=== PATIENT | female | born 1960 | race Caucasian/White ===

== ENCOUNTER 2016-11-23 01:13 | Emergency (ER) | payer OTHER ==
[~2016-11-23] VITALS: Ht 162.6 cm; Wt 95.8 kg
[~2016-11-23 01:13] MED LIST: ADVIL COLD &1 TABLET PO; BUSPAR15 MG PO; CIPRO750 MG PO; DAILY VALUE1 EACH PO; FLAGYL500 MG PO; FLEXERIL5 MG PO; FLOVENT 22120 INHALA IH; PATANASE30.5 GM BOTH NARES; SPIRIVA1 INHALATI IH; ULTRAM50 MG PO; ZANTAC75 M1 PO; ZYRTEC10 M2 PO
[2016-11-23 01:16] VITALS: BP 136/91
== END 2016-11-23 03:10 | disposition left against medical advice (07) ==
LOC: EME 01:13
DX: J02.9 Acute pharyngitis, unspecified (principal); Z53.21 Procedure and treatment not carried out due to patient leaving prior to being seen by health care provider

== ENCOUNTER 2016-12-14 22:06 | Emergency (ER) | payer OTHER ==
[~2016-12-14] VITALS: Ht 157.5 cm; Wt 93.0 kg
[2016-12-15] MEDS ORDERED: FLONASE16 G1 BOTH NARES (00:53)
[2016-12-15] MEDS ORDERED: FIORICET 50-301 EACH PO (00:53)
[2016-12-15] MEDS ORDERED: MUCINEX D ER T1 EAC1 PO (00:53)
[2016-12-15 01:14] VITALS: BP 143/105
== END 2016-12-15 01:45 | disposition home or self-care (01) ==
LOC: EME 22:06
DX: R51 Headache (principal); H92.09 Otalgia, unspecified ear; H93.19 Tinnitus, unspecified ear; J02.9 Acute pharyngitis, unspecified; R42 Dizziness and giddiness; J45.909 Unspecified asthma, uncomplicated; Z88.0 Allergy status to penicillin
CPT/HCPCS: 70450; 99281; 99284

== ENCOUNTER 2016-12-19 09:08 | Inpatient (IN) | payer OTHER ==
[~2016-12-19] VITALS: Ht 157.5 cm; Wt 93.2 kg
[~2016-12-19 09:08] MED LIST changes: +FIORICET 50-301 EACH PO; +FLONASE16 G1 BOTH NARES; +MUCINEX D ER T1 EAC1 PO
[2016-12-19 10:39] LABS: HEMATOCRIT 41.6 % (36.0-46.0); MCH 29.3 PG (29.0-34.0); MCHC 33.7 G/DL (30.0-36.0); MEAN PLAT.VOLUME 11.3 uM^3 (9.5-12.4); PLATELET COUNT 193 K/uL (156-360); RBC DIS.WIDTH-CV 12.5 % (11.8-14.6); RBC DIS.WIDTH-SD 39.8 % (39-53); RED BLOOD COUNT 4.78 M/uL (3.80-5.20); WHITE BLOOD COUNT 4.6 K/uL (4.1-10.2)
[2016-12-19 10:47] LABS: CHLORIDE 108 mEq/L (99-109); POTASSIUM 4.3 mEq/L (3.7-5.4); SODIUM 139 mEq/L (136-147)
[2016-12-19 10:50] LABS: GLUCOSE 112 mg/dL (70-99)
[2016-12-19 10:51] LABS: ANION GAP 8 MEQ/L (2-14); TOTAL BILIRUBIN 0.5 mg/dL (0.0-1.0)
[2016-12-19 10:53] LABS: ALKALINE PHOSPHATASE 78 IU/L (3-129); GFR ESTIMATE (CALCULATED) > 59 mL/min/
[2016-12-19 10:54] LABS: UREA NITROGEN (BUN) 5 mg/dL (9-23)
[2016-12-19 10:57] LABS: LIPASE 29 U/L (1.0-51.0)
[2016-12-19 10:58] LABS: ADD MIUA? YES; BILIRUBIN NEGATIVE; BLOOD NEGATIVE; COLOR YELLOW ((YELLOW)); GLUCOSE (STRIP) NEGATIVE; KETONES NEGATIVE; LEUKOCYTES LARGE; NITRITE NEGATIVE; PROTEIN (STRIP) NEGATIVE; SPECIFIC GRAVITY 1.004 (1.000-1.030); UROBILINOGEN 0.2 MG/DL (0.2-1.0)
[2016-12-19 10:58] LABS: TROP-I INTERPRETATION NEGATIVE; TROPONIN-I < 0.01 ng/mL (0.0-0.30)
[2016-12-19 11:26] LABS: BACTERIA 3+ /HPF; EPITHELIAL CELLS 2+ /HPF; MUCUS NONE SEEN /LPF; RED BLOOD CELLS 0-5 /HPF (0-5); UCUL ADDED? YES
[2016-12-19 14:40] VITALS: BP 113/73
[2016-12-19] MEDS ORDERED: CYMBALTA30 MG PO ×2 (15:01→19:23)
[2016-12-19] MEDS ORDERED: XANAX0.25 MG PO ×2 (15:02→19:26)
[2016-12-19] MEDS ORDERED: ADVIL200 MG PO (15:02)
[2016-12-19 16:54] LABS: TROP-I INTERPRETATION NEGATIVE; TROPONIN-I 0.01 ng/mL (0.0-0.30)
[2016-12-19] MEDS ORDERED: DIFLUCAN200 MG PO (19:21)
[2016-12-19] MEDS ORDERED: FLOVENT 22120 INHALA IH (19:24)
[2016-12-19 20:30] VITALS: BP 117/62
[2016-12-19 23:05] LABS: TROP-I INTERPRETATION NEGATIVE; TROPONIN-I < 0.01 ng/mL (0.0-0.30)
[2016-12-19 23:42] VITALS: BP 100/70
[2016-12-20 02:51] VITALS: BP 115/81
[2016-12-20 08:28] VITALS: BP 131/74
[2016-12-20 11:31] VITALS: BP 116/76
[2016-12-20 15:23] VITALS: BP 133/77
[2016-12-20 20:00] VITALS: BP 133/74
[2016-12-20 21:20] VITALS: BP 126/69
[2016-12-21 08:03] VITALS: BP 124/84
[2016-12-21 11:04] LABS: HEMATOCRIT 36.3 % (36.0-46.0); MCH 29.8 PG (29.0-34.0); MCHC 33.9 G/DL (30.0-36.0); MCV 87.9 FL (83-99); MEAN PLAT.VOLUME 11.2 uM^3 (9.5-12.4); PLATELET COUNT 155 K/uL (156-360); RBC DIS.WIDTH-CV 12.7 % (11.8-14.6); RED BLOOD COUNT 4.13 M/uL (3.80-5.20); WHITE BLOOD COUNT 4.3 K/uL (4.1-10.2)
[2016-12-21 11:41] LABS: ANION GAP 8 MEQ/L (2-14); CHLORIDE 109 MEQ/L (99-109); GFR ESTIMATE (CALCULATED) > 59 mL/min/; GLUCOSE 98 mg/dL (70-99); POTASSIUM 3.9 MEQ/L (3.7-5.4); SAMPLE HEMOLYSIS CHECK 0; SAMPLE ICTERIC CHECK 0; SAMPLE LIPEMIA CHECK 0; SODIUM 138 MEQ/L (136-147); UREA NITROGEN (BUN) 4 mg/dL (9-23)
[2016-12-21 12:33] VITALS: BP 120/89
[2016-12-21] MEDS ORDERED: ANASPAZ0.125 MG PO (14:16)
[2016-12-21] MEDS ORDERED: CEFTIN250 MG PO (14:16)
[2016-12-21] MEDS ORDERED: ZOFRAN4 MG PO (15:41)
== END 2016-12-21 16:45 | disposition home or self-care (01) | DRG 445 ==
LOC: EME 09:08 → EDOF 13:37 → 5WEST 13:37
PROVIDERS: Internal Medicine; Nurse Practitioner Family
DX: K80.12 Calculus of gallbladder with acute and chronic cholecystitis without obstruction (principal); N39.0 Urinary tract infection, site not specified; K43.9 Ventral hernia without obstruction or gangrene; K44.9 Diaphragmatic hernia without obstruction or gangrene; K21.9 Gastro-esophageal reflux disease without esophagitis; F41.9 Anxiety disorder, unspecified; J45.909 Unspecified asthma, uncomplicated; G43.909 Migraine, unspecified, not intractable, without status migrainosus; Z88.1 Allergy status to other antibiotic agents
CPT/HCPCS: 71020; 74177; 80048; 80053; 81003; 83690; 84484; 85027; 87086; 93005; 93971; 99202; 99281; 99285; C9113; G0378; J0696; J1200; J1650; J2405; J2765; J7030; J7050

== ENCOUNTER 2017-01-13 09:04 | Day surgery (SDC) | payer OTHER ==
[~2017-01-13] VITALS: Ht 157.5 cm; Wt 90.7 kg
[~2017-01-13 09:04] MED LIST changes: +ADVIL200 MG PO; +ANASPAZ0.125 MG PO; +BENADRYL ALLERG25 MG PO; +CEFTIN250 MG PO; +CYMBALTA30 MG PO; +DIFLUCAN200 MG PO; +KLONOPIN0.5 M1 PO; +MILK OF MAGNESI10 ML PO; +MYLANTA PO; +PROTONIX40 MG PO; +TUMS500 MG PO; +XANAX0.25 MG PO; +ZOFRAN4 MG PO; +[UNRECOGNIZED DRUG - REMARK] OP
[2017-01-13 09:42] VITALS: BP 121/72
[2017-01-13] MEDS ORDERED: TRAMADOL HCL50 MG PO (13:41)
[2017-01-13 14:44] VITALS: BP 108/68
[2017-01-13 15:44] VITALS: BP 117/59
[2017-01-13 17:04] VITALS: BP 115/78
== END 2017-01-13 17:14 | disposition home or self-care (01) ==
LOC: SDC 09:04
PROC: 0FT44ZZ Resection of Gallbladder, Percutaneous Endoscopic Approach (ICD-10-PCS; principal; 2017-01-13)
DX: K80.10 Calculus of gallbladder with chronic cholecystitis without obstruction (principal); Z88.0 Allergy status to penicillin; K43.9 Ventral hernia without obstruction or gangrene; J45.909 Unspecified asthma, uncomplicated; F41.9 Anxiety disorder, unspecified; Z82.61 Family history of arthritis; Z82.5 Family history of asthma and other chronic lower respiratory diseases; Z82.49 Family history of ischemic heart disease and other diseases of the circulatory system; Z82.62 Family history of osteoporosis; Z81.1 Family history of alcohol abuse and dependence; Z80.8 Family history of malignant neoplasm of other organs or systems; Z77.22 Contact with and (suspected) exposure to environmental tobacco smoke (acute) (chronic); K21.9 Gastro-esophageal reflux disease without esophagitis
CPT/HCPCS: 88304; J0330; J1100; J1170; J1580; J2250; J2405; J2710; J3010; J7050; Q0175; S0030

== ENCOUNTER 2017-03-23 14:23 | Emergency (ER) | payer OTHER ==
[~2017-03-23] VITALS: Ht 160 cm; Wt 88.5 kg
[~2017-03-23 14:23] MED LIST changes: +TRAMADOL HCL50 MG PO
[2017-03-23 16:26] LABS: CHLORIDE 106 mEq/L (99-109); POTASSIUM 4.4 mEq/L (3.7-5.4); SODIUM 140 mEq/L (136-147)
[2017-03-23 16:28] LABS: GLUCOSE 88 mg/dL (70-99)
[2017-03-23 16:29] LABS: ANION GAP 10 MEQ/L (2-14); HEMATOCRIT 43.2 % (36.0-46.0); MCH 30.2 PG (29.0-34.0); MCHC 33.8 G/DL (30.0-36.0); MCV 89.3 FL (83-99); MEAN PLAT.VOLUME 11.5 uM^3 (9.5-12.4); PLATELET COUNT 209 K/uL (156-360); RBC DIS.WIDTH-CV 12.9 % (11.8-14.6); RBC DIS.WIDTH-SD 42.3 % (39-53); RED BLOOD COUNT 4.84 M/uL (3.80-5.20); WHITE BLOOD COUNT 5.7 K/uL (4.1-10.2)
[2017-03-23 16:30] LABS: TOTAL BILIRUBIN 0.6 mg/dL (0.0-1.0)
[2017-03-23 16:31] LABS: ALKALINE PHOSPHATASE 90 IU/L (3-129)
[2017-03-23 16:32] LABS: GFR ESTIMATE (CALCULATED) > 59 mL/min/
[2017-03-23 16:33] LABS: UREA NITROGEN (BUN) 8 mg/dL (9-23)
[2017-03-23 19:06] LABS: ADD MIUA? YES; BILIRUBIN NEGATIVE; BLOOD NEGATIVE; COLOR STRAW ((YELLOW)); GLUCOSE (STRIP) NEGATIVE; KETONES 5; LEUKOCYTES NEGATIVE; NITRITE NEGATIVE; PROTEIN (STRIP) NEGATIVE; SPECIFIC GRAVITY 1.005 (1.000-1.030); UROBILINOGEN 0.2 MG/DL (0.2-1.0)
[2017-03-23 19:12] LABS: LIPASE 39 U/L (1.0-51.0)
[2017-03-23 19:13] LABS: BACTERIA 3+ /HPF; EPITHELIAL CELLS 1+ /HPF; MUCUS NONE SEEN /LPF; RED BLOOD CELLS 0-5 /HPF (0-5); UCUL ADDED? YES; WHITE BLOOD CELLS 0-5 /HPF (0-5)
[2017-03-23 23:40] VITALS: BP 130/83
== END 2017-03-23 23:43 | disposition home or self-care (01) ==
LOC: EME 14:23
DX: R10.13 Epigastric pain (principal); K44.9 Diaphragmatic hernia without obstruction or gangrene; Z90.49 Acquired absence of other specified parts of digestive tract; F41.9 Anxiety disorder, unspecified; Z87.442 Personal history of urinary calculi; Z90.711 Acquired absence of uterus with remaining cervical stump; Z88.0 Allergy status to penicillin
CPT/HCPCS: 74177; 80053; 81003; 83690; 85027; 87086; 99281; 99284; J2405; J3010; J7030

== ENCOUNTER → 2017-04-02 | Outpatient (CLI) | payer OTHER ==
[~2017-04-02] VITALS: Ht 160 cm; Wt 87.5 kg
== END | disposition home or self-care (01) ==
LOC: AMB 08:58
PROC: 0DB68ZX Excision of Stomach, Via Natural or Artificial Opening Endoscopic, Diagnostic (ICD-10-PCS; principal; 2017-04-02)
DX: K31.7 Polyp of stomach and duodenum (principal); K29.60 Other gastritis without bleeding; K44.9 Diaphragmatic hernia without obstruction or gangrene; Z88.0 Allergy status to penicillin; R11.0 Nausea; J45.909 Unspecified asthma, uncomplicated; K21.9 Gastro-esophageal reflux disease without esophagitis; Z80.0 Family history of malignant neoplasm of digestive organs; Z77.22 Contact with and (suspected) exposure to environmental tobacco smoke (acute) (chronic)
CPT/HCPCS: 88305; 88342 TC; 93005; J2250; J3010

== ENCOUNTER 2017-04-09 17:10 | Observation (INO) | payer OTHER ==
[~2017-04-09] VITALS: Ht 160 cm; Wt 91.0 kg
[2017-04-09 17:32] LABS: HEMATOCRIT 42.1 % (36.0-46.0); MCH 29.7 PG (29.0-34.0); PLATELET COUNT 182 K/uL (156-360); RBC DIS.WIDTH-CV 12.7 % (11.8-14.6); RED BLOOD COUNT 4.68 M/uL (3.80-5.20); WHITE BLOOD COUNT 6.6 K/uL (4.1-10.2)
[2017-04-09 17:39] LABS: CHLORIDE 105 mEq/L (99-109); POTASSIUM 4.4 mEq/L (3.7-5.4); SODIUM 140 mEq/L (136-147)
[2017-04-09 17:41] LABS: GLUCOSE 82 mg/dL (70-99)
[2017-04-09 17:42] LABS: ANION GAP 11 MEQ/L (2-14)
[2017-04-09 17:45] LABS: GFR ESTIMATE (CALCULATED) > 59 mL/min/
[2017-04-09 17:46] LABS: UREA NITROGEN (BUN) 11 mg/dL (9-23)
[2017-04-09 17:51] LABS: TROP-I INTERPRETATION NEGATIVE; TROPONIN-I < 0.01 ng/mL (0.0-0.30)
[2017-04-09] MEDS ORDERED: CEFTIN500 MG PO (18:41)
[2017-04-09] MEDS ORDERED: PROTONIX40 MG PO (18:41)
[2017-04-09] MEDS ORDERED: VENTOLIN HFA18 GM IH (18:41)
[2017-04-09] MEDS ORDERED: TRAZODONE HCL50 MG PO (18:42)
[2017-04-09 21:52] VITALS: BP 131/72
[2017-04-09 22:09] LABS: TOTAL BILIRUBIN 0.3 mg/dL (0.0-1.0)
[2017-04-09 22:10] LABS: ALKALINE PHOSPHATASE 74 IU/L (3-129)
[2017-04-09 22:12] LABS: DIRECT BILIRUBIN 0.1 mg/dL (0.0-0.3)
[2017-04-09 22:13] LABS: LIPASE 49 U/L (1.0-51.0)
[2017-04-09 23:41] VITALS: BP 126/79
[2017-04-10 00:15] LABS: TROP-I INTERPRETATION NEGATIVE; TROPONIN-I < 0.01 ng/mL (0.0-0.30)
[2017-04-10 03:40] VITALS: BP 133/71
[2017-04-10 05:46] LABS: TROP-I INTERPRETATION NEGATIVE; TROPONIN-I < 0.01 ng/mL (0.0-0.30)
[2017-04-10 07:51] VITALS: BP 121/68
== END 2017-04-10 11:45 | disposition home or self-care (01) ==
LOC: EME 17:10 → EDOF 20:55 → ENRESERV 21:00 → 5WEST 21:44 → ENPENDDIS 04-10 → 5WEST 04-10 11:45
PROVIDERS: Emergency Medicine; Hospitalist
DX: R07.89 Other chest pain (principal); K44.9 Diaphragmatic hernia without obstruction or gangrene; K21.9 Gastro-esophageal reflux disease without esophagitis; K22.2 Esophageal obstruction; F41.9 Anxiety disorder, unspecified; K31.7 Polyp of stomach and duodenum; K29.60 Other gastritis without bleeding; J30.2 Other seasonal allergic rhinitis; E66.9 Obesity, unspecified; Z68.35 Body mass index [BMI] 35.0-35.9, adult; Z90.711 Acquired absence of uterus with remaining cervical stump; Z90.49 Acquired absence of other specified parts of digestive tract; Z87.442 Personal history of urinary calculi; Z82.49 Family history of ischemic heart disease and other diseases of the circulatory system; Z88.0 Allergy status to penicillin
CPT/HCPCS: 71020; 71275; 80048; 80076; 83690; 84484; 85027; 93005; 94760; 99202; 99281; 99285; G0378